=== PATIENT | female | born 1955 | race Caucasian/White ===

== ENCOUNTER 2022-04-28 20:18 | Inpatient (IN) ==
[2022-04-28] MEDS ORDERED: MORPHINE 2 MG/1 ML SYRINGE IV STA (20:42)
[2022-04-28] MEDS ORDERED: SODIUM CHLORIDE 0.9% 500 ML IV STA (20:42)
[2022-04-28] MEDS ORDERED: ASPIRIN 325 MG TABLET PO STA (20:42)
[2022-04-28] MEDS ORDERED: DILTIAZEM 50 MG/10 ML VIAL IV STA (20:42)
[2022-04-28] MEDS ORDERED: ONDANSETRON 4 MG/2 ML VIAL IV STA (20:45)
[2022-04-28 20:57] LABS: Basophils # 0.1 10*3/uL (0.0-0.2); Basophils % 1.2 % (0.0-0.8); Eosinophils # 0.2 10*3/uL (0.0-0.87); Eosinophils % 1.6 % (0.00-10.9); Hematocrit 41.3 VOL% (35.7-47.0); Hemoglobin 13.3 GM/DL (12.0-16.0); Immature Granulocytes % 0.9 %; Immature Granulocytes Absolute 0.09 #; Lymphocytes # 3.3 10*3/uL (1.4-4.0); Lymphocytes % 31.4 % (21.3-54.2); Mean Corpuscular HGB Conc 32.2 GM/DL (32-36); Mean Corpuscular Volume 87.5 FL (87-102); Mean Platelet Volume 10.1 FL (9.6-12.0); Monocytes # 0.9 10*3/uL (0.11-0.8); Monocytes % 8.5 % (1.7-12.7); Neutrophils % 56.4 % (38.7-73.9); Platelet Count 390 T/CUMM (130-400); Red Blood Count 4.72 MC/CUMM (3.8-5.5); Red Cell Distribution Width 14.6 % (9.3-17.3); White Blood Count 10.4 T/CUMM (4-12)
[2022-04-28 21:06] LABS: INR 1.1; PT Patient Result 12.4 SECS (10.1-12.1)
[2022-04-28] MEDS: DILTIAZEM INJ 100 MG in SODIUM CHLORIDE 0.9% 100 ML IV SCH (21:10)
[2022-04-28 21:21] LABS: Albumin 3.2 G/DL (3.4-5.0); Bilirubin,Total 0.7 MG/DL (0.20-1.00); Calcium 8.6 MG/DL (8.5-10.1); Osmolality,Calculated 280.5 MOS/KG (273-304); Thyroid Stimulating Hormone 12.7 uIU/ml (0.358-3.74); Total Protein 6.3 G/DL (6.4-8.2)
[2022-04-28] MEDS ORDERED: POTASSIUM CHLORIDE 20 MEQ TABLET PO STA (21:23)
[2022-04-28] MEDS ORDERED: ENOXAPARIN 100 MG/ML SYRINGE SUBCUT STA (21:58)
[2022-04-28] MEDS ORDERED: ENOXAPARIN 80 MG/0.8 ML SYRINGE SUBCUT STA (22:00)
[2022-04-28] MEDS ORDERED: ZALEPLON 5 MG CAPSULE PO PRN (22:27)
[2022-04-28] MEDS ORDERED: hydrALAZINE 20 MG/1 ML VIAL IV PRN (22:27)
[2022-04-28] MEDS ORDERED: ALBUTEROL/IPRATROPIUM 3 ML NEB RESP TX PRN (22:27)
[2022-04-28] MEDS ORDERED: NICOTINE 21 MG/24 HR PATCH TRANSDERM PRN (22:27)
[2022-04-28] MEDS ORDERED: diphenhydrAMINE CAP 25 MG CAPSULE PO PRN (22:27)
[2022-04-28] MEDS ORDERED: guaiFENesin/DM ER 600-30 MG TABLET PO PRN (22:27)
[2022-04-28 23:46] LABS: Bacteria,Urine Occasional /HPF (Few); RBC,Urine 4 /HPF (0-4); Squamous Epithelial Cell,Urine Occasional /HPF (0-10)
[2022-04-28 23:47] LABS: Bilirubin,Urine Negative (Negative); Blood, Urine Moderate mg/dL (Negative); Glucose,Urine (UA) Negative (Negative); Ketones,Urine Negative (Negative); Nitrite,Urine Negative (Negative); Protein,Urine 30 mg/dL (Negative); Urine Appearance Clear (Clear); Urine Color Yellow (Yellow); Urine Specific Gravity 1.015 (1.001-1.035); Urine Urobilinogen 0.2 eU/dL (<2.0)
[2022-04-29 00:10] LABS: Barbiturates Screen,Urine Negative (Negative); Benzodiazepines Screen,Urine Negative (Negative); Cannabinoid Screen,Urine Negative (Negative); Opiate Screen,Urine Negative (Negative); Phencyclidine Screen,Urine Negative (Negative)
[2022-04-29] MEDS: cefTRIAXone 1,000 MG in SODIUM CHLORIDE 0.9% 100 ML IV SCH (00:50)
[2022-04-29] MEDS: ONDANSETRON 4 MG/2 ML VIAL IV PRN ×2 (01:10→08:26)
[2022-04-29] MEDS: MORPHINE 2 MG/1 ML SYRINGE IV PRN ×2 (01:13→08:25)
[2022-04-29] MEDS: metroNIDAZOLE INJ 500 MG/100 ML PREMIX IV SCH ×3 (01:58→17:49)
[2022-04-29 04:22] LABS: Basophils # 0.1 10*3/uL (0.0-0.2); Basophils % 0.6 % (0.0-0.8); Hematocrit 42.5 VOL% (35.7-47.0); Hemoglobin 13.2 GM/DL (12.0-16.0); Immature Granulocytes Absolute 0.14 #; Lymphocytes # 1.2 10*3/uL (1.4-4.0); Lymphocytes % 8.6 % (21.3-54.2); Mean Corpuscular HGB Conc 31.1 GM/DL (32-36); Mean Corpuscular Volume 89.3 FL (87-102); Mean Platelet Volume 10.5 FL (9.6-12.0); Monocytes # 0.9 10*3/uL (0.11-0.8); Monocytes % 6.5 % (1.7-12.7); Neutrophils % 83.3 % (38.7-73.9); Platelet Count 376 T/CUMM (130-400); Red Blood Count 4.76 MC/CUMM (3.8-5.5); Red Cell Distribution Width 14.6 % (9.3-17.3); White Blood Count 13.6 T/CUMM (4-12)
[2022-04-29 04:47] LABS: Calcium 8.6 MG/DL (8.5-10.1); Osmolality,Calculated 278.7 MOS/KG (273-304)
[2022-04-29] MEDS: FUROSEMIDE 40 MG/4 ML VIAL IV SCH ×2 (07:55→17:10)
[2022-04-29] MEDS: DOCUSATE SODIUM 100 MG CAPSULE PO SCH ×2 (09:30→23:59)
[2022-04-29] MEDS: POTASSIUM CHLORIDE 20 MEQ TABLET PO SCH (09:30)
[2022-04-29] MEDS: PANTOPRAZOLE 40 MG TABLET PO SCH (09:30)
[2022-04-29] MEDS ORDERED: LEVALBUTEROL 1.25 MG/3 ML NEB RESP TX PRN (12:46)
[2022-04-29] MEDS: DILTIAZEM INJ 100 MG in SODIUM CHLORIDE 0.9% 100 ML IV SCH (20:30)
[2022-04-30] MEDS: cefTRIAXone 1,000 MG in SODIUM CHLORIDE 0.9% 100 ML IV SCH (00:12)
[2022-04-30] MEDS: metroNIDAZOLE INJ 500 MG/100 ML PREMIX IV SCH ×2 (00:12→09:44)
[2022-04-30] MEDS: MORPHINE 2 MG/1 ML SYRINGE IV PRN (01:41)
[2022-04-30 04:37] LABS: Basophils # 0.1 10*3/uL (0.0-0.2); Basophils % 0.2 % (0.0-0.8); Hematocrit 38.8 VOL% (35.7-47.0); Hemoglobin 12.5 GM/DL (12.0-16.0); Immature Granulocytes % 1.4 %; Immature Granulocytes Absolute 0.42 #; Lymphocytes % 3.4 % (21.3-54.2); Mean Corpuscular HGB Conc 32.2 GM/DL (32-36); Mean Platelet Volume 10.1 FL (9.6-12.0); Monocytes # 2.3 10*3/uL (0.11-0.8); Monocytes % 7.8 % (1.7-12.7); NRBC # 0.03 10*3/uL; Neutrophils % 87.2 % (38.7-73.9); Platelet Count 321 T/CUMM (130-400); Red Blood Count 4.41 MC/CUMM (3.8-5.5); Red Cell Distribution Width 14.8 % (9.3-17.3)
[2022-04-30 04:58] LABS: Lymphocytes 3 % (20-55); Platelet Estimate Adequate; Total Cells Counted 100
[2022-04-30 04:59] LABS: Hypochromia Slight; Microcytosis Slight
[2022-04-30 05:00] LABS: Albumin 2.8 G/DL (3.4-5.0); Bilirubin,Total 0.6 MG/DL (0.20-1.00); Calcium 8.4 MG/DL (8.5-10.1); Osmolality,Calculated 279.5 MOS/KG (273-304); Potassium 3.4 MMOL/L (3.5-5.1); Total Protein 6.2 G/DL (6.4-8.2)
[2022-04-30 05:01] LABS: Risk Ratio 3.11; VLDL Cholesterol 27.2 MG/DL
[2022-04-30] MEDS: DILTIAZEM INJ 100 MG in SODIUM CHLORIDE 0.9% 100 ML IV SCH ×3 (05:37→22:06)
[2022-04-30] MEDS ORDERED: MAGNESIUM SULF RIDER 4 GM/100 ML PREMIX IV PRN (08:42)
[2022-04-30] MEDS ORDERED: MAGNESIUM SULF RIDER 2 GM/50 ML PREMIX IV PRN (08:42)
[2022-04-30] MEDS: FUROSEMIDE 40 MG/4 ML VIAL IV SCH (09:44)
[2022-04-30] MEDS: NICOTINE 21 MG/24 HR PATCH TRANSDERM SCH ×2 (09:44→12:08)
[2022-04-30 11:53] LABS: Basophils # 0.1 10*3/uL (0.0-0.2); Basophils % 0.2 % (0.0-0.8); Hematocrit 41.7 VOL% (35.7-47.0); Hemoglobin 13.4 GM/DL (12.0-16.0); Immature Granulocytes % 1.5 %; Immature Granulocytes Absolute 0.52 #; Lymphocytes # 1.2 10*3/uL (1.4-4.0); Lymphocytes % 3.3 % (21.3-54.2); Mean Corpuscular HGB Conc 32.1 GM/DL (32-36); Mean Corpuscular Volume 89.1 FL (87-102); Mean Platelet Volume 9.7 FL (9.6-12.0); Monocytes # 2.6 10*3/uL (0.11-0.8); Monocytes % 7.3 % (1.7-12.7); NRBC # 0.03 10*3/uL; Neutrophils % 87.7 % (38.7-73.9); Platelet Count 381 T/CUMM (130-400); Red Blood Count 4.68 MC/CUMM (3.8-5.5); White Blood Count 35.3 T/CUMM (4-12)
[2022-04-30] MEDS: POTASSIUM CHLORIDE 20 MEQ TABLET PO SCH (12:43)
[2022-04-30 12:44] LABS: Band Neutrophils 2 % (0-10); Lymphocytes 1 % (20-55); Total Cells Counted 100
[2022-04-30] MEDS: PANTOPRAZOLE 40 MG TABLET PO SCH (12:44)
[2022-04-30] MEDS: DOCUSATE SODIUM 100 MG CAPSULE PO SCH ×2 (12:44→22:03)
[2022-04-30 12:46] LABS: Platelet Estimate Normal; Polychromasia Slight
[2022-04-30] MEDS: PIPERACILLIN/TAZOBACTAM 3,375 MG in SODIUM CHLORIDE 0.9% 100 ML IV SCH ×2 (14:50→22:05)
[2022-04-30] MEDS ORDERED: SODIUM CHLORIDE 0.9% 1,000 ML IV ONE (15:45)
[2022-04-30] MEDS ORDERED: HEPARIN DRIP 25,000 UNITS/500 ML PREMIX IV SCH (17:30)
[2022-04-30] MEDS: VANCOMYCIN INJ 1,000 MG in SODIUM CHLORIDE 0.9% 250 ML IV SCH (18:40)
[2022-04-30 20:00] LABS: INR 1.5; Partial Thromboplastin Time 29.7 SECS (23.7-32.9)
[2022-04-30] MEDS: HEPARIN DRIP 25,000 UNITS/500 ML PREMIX IV SCH (23:45)
[2022-05-01] MEDS: ACETAMINOPHEN 325 MG TABLET PO PRN (04:30)
[2022-05-01 05:07] LABS: Basophils # 0.1 10*3/uL (0.0-0.2); Basophils % 0.3 % (0.0-0.8); Hematocrit 38.5 VOL% (35.7-47.0); Hemoglobin 12.3 GM/DL (12.0-16.0); Immature Granulocytes Absolute 0.28 #; Lymphocytes # 1.5 10*3/uL (1.4-4.0); Lymphocytes % 5.4 % (21.3-54.2); Mean Corpuscular HGB Conc 31.9 GM/DL (32-36); Mean Corpuscular Volume 88.9 FL (87-102); Mean Platelet Volume 10.4 FL (9.6-12.0); Monocytes # 2.2 10*3/uL (0.11-0.8); NRBC # 0.03 10*3/uL; Neutrophils % 85.3 % (38.7-73.9); Platelet Count 342 T/CUMM (130-400); Red Blood Count 4.33 MC/CUMM (3.8-5.5); Red Cell Distribution Width 14.9 % (9.3-17.3); White Blood Count 27.9 T/CUMM (4-12)
[2022-05-01 05:31] LABS: Hypochromia Slight; Lymphocytes 7 % (20-55); Microcytosis Slight; Platelet Estimate Adequate; Total Cells Counted 100
[2022-05-01 05:53] LABS: Albumin 2.6 G/DL (3.4-5.0); Bilirubin,Total 0.8 MG/DL (0.20-1.00); Calcium 8.5 MG/DL (8.5-10.1); Osmolality,Calculated 275.8 MOS/KG (273-304); Potassium 3.3 MMOL/L (3.5-5.1); Total Protein 6.2 G/DL (6.4-8.2)
[2022-05-01] MEDS ORDERED: DILTIAZEM 60 MG TABLET PO ONE (06:30)
[2022-05-01] MEDS ORDERED: METOPROLOL TARTRATE 5 MG/5 ML VIAL IV PRN (06:32)
[2022-05-01] MEDS ORDERED: MAGNESIUM SULF RIDER 2 GM/50 ML PREMIX IV ONE (07:30)
[2022-05-01] MEDS: METOPROLOL TARTRATE 25 MG TABLET PO SCH ×2 (11:00→21:40)
[2022-05-01] MEDS: DOCUSATE SODIUM 100 MG CAPSULE PO SCH ×2 (11:00→21:40)
[2022-05-01] MEDS: POTASSIUM CHLORIDE 20 MEQ TABLET PO SCH (11:00)
[2022-05-01] MEDS: PANTOPRAZOLE 40 MG TABLET PO SCH (11:00)
[2022-05-01] MEDS: MORPHINE 2 MG/1 ML SYRINGE IV PRN (11:20)
[2022-05-01] MEDS: NICOTINE 21 MG/24 HR PATCH TRANSDERM SCH (11:33)
[2022-05-01 17:15] LABS: INR 1.3; PT Patient Result 14.4 SECS (10.1-12.1)
[2022-05-01 17:55] LABS: Partial Thromboplastin Time 120.4 SECS (23.7-32.9)
[2022-05-01] MEDS: HEPARIN DRIP 25,000 UNITS/500 ML PREMIX IV SCH (18:08)
[2022-05-01] MEDS: VANCOMYCIN INJ 1,000 MG in SODIUM CHLORIDE 0.9% 250 ML IV SCH (18:09)
[2022-05-01 22:36] LABS: INR 1.2; PT Patient Result 13.1 SECS (10.1-12.1); Partial Thromboplastin Time 80.9 SECS (23.7-32.9)
[2022-05-02 04:58] LABS: Basophils % 0.2 % (0.0-0.8); Eosinophils % 0.1 % (0.00-10.9); Hematocrit 33.5 VOL% (35.7-47.0); Hemoglobin 10.9 GM/DL (12.0-16.0); Immature Granulocytes % 1.1 %; Immature Granulocytes Absolute 0.19 #; Lymphocytes % 5.8 % (21.3-54.2); Mean Corpuscular HGB Conc 32.5 GM/DL (32-36); Mean Corpuscular Volume 88.4 FL (87-102); Mean Platelet Volume 10.6 FL (9.6-12.0); Monocytes # 1.4 10*3/uL (0.11-0.8); Monocytes % 7.6 % (1.7-12.7); Neutrophils % 85.2 % (38.7-73.9); Platelet Count 293 T/CUMM (130-400); Red Blood Count 3.79 MC/CUMM (3.8-5.5); Red Cell Distribution Width 14.7 % (9.3-17.3); White Blood Count 17.9 T/CUMM (4-12)
[2022-05-02 05:17] LABS: Albumin 2.2 G/DL (3.4-5.0); Bilirubin,Total 0.6 MG/DL (0.20-1.00); Calcium 8.1 MG/DL (8.5-10.1); Potassium 3.2 MMOL/L (3.5-5.1); Total Protein 5.5 G/DL (6.4-8.2)
[2022-05-02] MEDS ORDERED: POTASSIUM CHLORIDE 20 MEQ TABLET PO ONE (07:30)
[2022-05-02] MEDS: DOCUSATE SODIUM 100 MG CAPSULE PO SCH ×2 (10:14→20:30)
[2022-05-02] MEDS: PANTOPRAZOLE 40 MG TABLET PO SCH (10:14)
[2022-05-02] MEDS: METOPROLOL TARTRATE 25 MG TABLET PO SCH ×2 (10:14→20:30)
[2022-05-02] MEDS: POTASSIUM CHLORIDE 20 MEQ TABLET PO SCH (10:14)
[2022-05-02] MEDS: NICOTINE 21 MG/24 HR PATCH TRANSDERM SCH (10:14)
[2022-05-02] MEDS: MORPHINE 2 MG/1 ML SYRINGE IV PRN (12:21)
[2022-05-02 12:52] LABS: Amorphous Crystals,Urine Occasional /HPF (Few); RBC,Urine 4 /HPF (0-4)
[2022-05-02 12:53] LABS: Bilirubin,Urine Small mg/dL (Negative); Blood, Urine Large mg/dL (Negative); Glucose,Urine (UA) Negative (Negative); Ketones,Urine 15 mg/dL (Negative); Nitrite,Urine Negative (Negative); Protein,Urine 100 mg/dL (Negative); Urine Appearance Clear (Clear); Urine Color Yellow (Yellow); Urine Specific Gravity > 1.030 (1.001-1.035); Urine Urobilinogen 0.2 eU/dL (<2.0)
[2022-05-02] MEDS: VANCOMYCIN INJ 1,000 MG in SODIUM CHLORIDE 0.9% 250 ML IV SCH (17:21)
[2022-05-02] MEDS: HEPARIN DRIP 25,000 UNITS/500 ML PREMIX IV SCH ×2 (17:30→23:30)
[2022-05-03 04:52] LABS: Basophils % 0.2 % (0.0-0.8); Eosinophils # 0.1 10*3/uL (0.0-0.87); Eosinophils % 0.6 % (0.00-10.9); Hematocrit 35.9 VOL% (35.7-47.0); Hemoglobin 11.4 GM/DL (12.0-16.0); Immature Granulocytes % 0.8 %; Immature Granulocytes Absolute 0.11 #; Lymphocytes # 1.3 10*3/uL (1.4-4.0); Lymphocytes % 10.2 % (21.3-54.2); Mean Corpuscular HGB Conc 31.8 GM/DL (32-36); Mean Corpuscular Volume 87.6 FL (87-102); Mean Platelet Volume 10.1 FL (9.6-12.0); Monocytes # 1.3 10*3/uL (0.11-0.8); Monocytes % 9.5 % (1.7-12.7); NRBC # 0.03 10*3/uL; Neutrophils % 78.7 % (38.7-73.9); Platelet Count 298 T/CUMM (130-400); Red Cell Distribution Width 14.6 % (9.3-17.3); White Blood Count 13.1 T/CUMM (4-12)
[2022-05-03 05:11] LABS: Calcium 8.1 MG/DL (8.5-10.1); Osmolality,Calculated 268.4 MOS/KG (273-304); Potassium 3.9 MMOL/L (3.5-5.1)
[2022-05-03] MEDS ORDERED: METOPROLOL TARTRATE 25 MG TABLET PO ONE (10:22)
[2022-05-03] MEDS ORDERED: FUROSEMIDE 40 MG/4 ML VIAL IV ONE (10:23)
[2022-05-03] MEDS: POTASSIUM CHLORIDE 20 MEQ TABLET PO SCH (10:37)
[2022-05-03] MEDS: PANTOPRAZOLE 40 MG TABLET PO SCH (10:37)
[2022-05-03] MEDS: DOCUSATE SODIUM 100 MG CAPSULE PO SCH ×2 (10:38→21:00)
[2022-05-03] MEDS: NICOTINE 21 MG/24 HR PATCH TRANSDERM SCH (10:38)
[2022-05-03] MEDS: METOPROLOL TARTRATE 25 MG TABLET PO SCH (10:57)
[2022-05-03] MEDS: APIXABAN 5 MG TABLET PO SCH (12:21)
[2022-05-03] MEDS ORDERED: INDOCYANINE GREEN 25 MG VIAL IV ONE (12:30)
[2022-05-03] MEDS ORDERED: ceFAZolin 2,000 MG/50 ML DUPLEX IV ONE (12:30)
[2022-05-03] MEDS: ACETAMINOPHEN 325 MG TABLET PO PRN ×2 (13:04→21:00)
[2022-05-03] MEDS ORDERED: FAMOTIDINE 20 MG TABLET PO ONE (15:24)
[2022-05-03] MEDS: PIPERACILLIN/TAZOBACTAM 3,375 MG in SODIUM CHLORIDE 0.9% 100 ML IV SCH ×2 (16:38→21:00)
[2022-05-03] MEDS: METOPROLOL TARTRATE 50 MG TABLET PO SCH (20:59)
[2022-05-04 04:34] LABS: Basophils % 0.2 % (0.0-0.8); Eosinophils # 0.1 10*3/uL (0.0-0.87); Eosinophils % 1.1 % (0.00-10.9); Hematocrit 36.7 VOL% (35.7-47.0); Hemoglobin 11.8 GM/DL (12.0-16.0); Immature Granulocytes % 1.2 %; Immature Granulocytes Absolute 0.15 #; Lymphocytes # 1.8 10*3/uL (1.4-4.0); Mean Corpuscular HGB Conc 32.2 GM/DL (32-36); Mean Corpuscular Volume 87.2 FL (87-102); Mean Platelet Volume 10.1 FL (9.6-12.0); Monocytes # 1.4 10*3/uL (0.11-0.8); Monocytes % 10.9 % (1.7-12.7); NRBC # 0.02 10*3/uL; Neutrophils % 72.6 % (38.7-73.9); Platelet Count 335 T/CUMM (130-400); Red Blood Count 4.21 MC/CUMM (3.8-5.5); Red Cell Distribution Width 14.7 % (9.3-17.3); White Blood Count 12.5 T/CUMM (4-12)
[2022-05-04 04:54] LABS: Albumin 2.2 G/DL (3.4-5.0); Bilirubin,Total 0.7 MG/DL (0.20-1.00); Calcium 7.9 MG/DL (8.5-10.1); Osmolality,Calculated 273.1 MOS/KG (273-304); Potassium 4.1 MMOL/L (3.5-5.1); Total Protein 5.6 G/DL (6.4-8.2)
[2022-05-04] MEDS: PIPERACILLIN/TAZOBACTAM 3,375 MG in SODIUM CHLORIDE 0.9% 100 ML IV SCH ×3 (05:20→21:50)
[2022-05-04] MEDS ORDERED: FAMOTIDINE 20 MG TABLET PO ONE (06:00)
[2022-05-04] MEDS ORDERED: ceFAZolin 2,000 MG/50 ML DUPLEX IV ONE (06:00)
[2022-05-04] MEDS ORDERED: INDOCYANINE GREEN 25 MG VIAL IV ONE (06:00)
[2022-05-04] MEDS ORDERED: ONDANSETRON 4 MG/2 ML VIAL ONE (08:22)
[2022-05-04] MEDS ORDERED: ETOMIDATE 40 MG/20 ML VIAL IV ONE (08:22)
[2022-05-04] MEDS ORDERED: SUCCINYLCHOLINE 200 MG/10 ML VIAL ONE (08:22)
[2022-05-04] MEDS ORDERED: fentaNYL 100 MCG/2 ML VIAL ONE (08:22)
[2022-05-04] MEDS ORDERED: ROCURONIUM 50 MG/5 ML VIAL IV ONE (08:22)
[2022-05-04] MEDS ORDERED: MIDAZOLAM 2 MG/2 ML VIAL ONE (08:22)
[2022-05-04] MEDS ORDERED: LIDOCAINE 2% 5 ML VIAL ONE (08:22)
[2022-05-04] MEDS ORDERED: LIDOCAINE 1%/EPI INJ 20 ML VIAL ONE (08:24)
[2022-05-04] MEDS ORDERED: TISSUE ADHESIVE 1 EACH APPLICATOR TOP ONE (08:24)
[2022-05-04] MEDS ORDERED: BUPIVACAINE MPF 0.25% 10 ML VIAL ONE (08:24)
[2022-05-04] MEDS ORDERED: ACETAMINOPHEN INJ 1,000 MG/100 ML VIAL IV ONE (08:28)
[2022-05-04] MEDS ORDERED: LACTATED RINGERS 1,000 ML IV SCH (09:00)
[2022-05-04] MEDS ORDERED: FUROSEMIDE 40 MG TABLET PO SCH (09:00)
[2022-05-04] MEDS ORDERED: SUGAMMADEX 200 MG/2 ML VIAL IV ONE (09:24)
[2022-05-04] MEDS ORDERED: PHENYLEPHRINE 1 MG/10 ML SYRINGE IV ONE (09:24)
[2022-05-04] MEDS: PANTOPRAZOLE 40 MG TABLET PO SCH (10:29)
[2022-05-04] MEDS: DOCUSATE SODIUM 100 MG CAPSULE PO SCH ×2 (10:29→21:49)
[2022-05-04] MEDS: METOPROLOL TARTRATE 50 MG TABLET PO SCH ×2 (10:29→21:49)
[2022-05-04] MEDS: POTASSIUM CHLORIDE 20 MEQ TABLET PO SCH (10:29)
[2022-05-04] MEDS: NICOTINE 21 MG/24 HR PATCH TRANSDERM SCH (13:24)
[2022-05-04] MEDS: ACETAMINOPHEN 325 MG TABLET PO PRN (21:49)
[2022-05-05 04:24] LABS: Basophils % 0.3 % (0.0-0.8); Eosinophils # 0.1 10*3/uL (0.0-0.87); Eosinophils % 0.5 % (0.00-10.9); Hemoglobin 11.9 GM/DL (12.0-16.0); Immature Granulocytes % 1.7 %; Immature Granulocytes Absolute 0.21 #; Lymphocytes # 1.5 10*3/uL (1.4-4.0); Lymphocytes % 12.2 % (21.3-54.2); Mean Corpuscular HGB Conc 31.3 GM/DL (32-36); Mean Corpuscular Volume 88.2 FL (87-102); Mean Platelet Volume 10.3 FL (9.6-12.0); Monocytes # 1.2 10*3/uL (0.11-0.8); Monocytes % 9.7 % (1.7-12.7); NRBC # 0.04 10*3/uL; Neutrophils % 75.6 % (38.7-73.9); Platelet Count 264 T/CUMM (130-400); Red Blood Count 4.31 MC/CUMM (3.8-5.5); Red Cell Distribution Width 14.6 % (9.3-17.3); White Blood Count 12.3 T/CUMM (4-12)
[2022-05-05 04:45] LABS: Albumin 2.3 G/DL (3.4-5.0); Bilirubin,Total 0.7 MG/DL (0.20-1.00); Calcium 8.2 MG/DL (8.5-10.1); Potassium 4.2 MMOL/L (3.5-5.1); Total Protein 5.3 G/DL (6.4-8.2)
[2022-05-05] MEDS: PIPERACILLIN/TAZOBACTAM 3,375 MG in SODIUM CHLORIDE 0.9% 100 ML IV SCH (05:26)
[2022-05-05] MEDS: POTASSIUM CHLORIDE 20 MEQ TABLET PO SCH (09:01)
[2022-05-05] MEDS: METOPROLOL TARTRATE 50 MG TABLET PO SCH (09:01)
[2022-05-05] MEDS: PANTOPRAZOLE 40 MG TABLET PO SCH (09:01)
[2022-05-05] MEDS: DOCUSATE SODIUM 100 MG CAPSULE PO SCH ×3 (09:01→21:22)
[2022-05-05] MEDS: NICOTINE 21 MG/24 HR PATCH TRANSDERM SCH (09:02)
[2022-05-05] MEDS: MORPHINE 2 MG/1 ML SYRINGE IV PRN (13:01)
[2022-05-05] MEDS ORDERED: SODIUM CHLORIDE 0.9% 500 ML IV ONE ×2 (16:10→18:22)
[2022-05-05 16:29] LABS: Basophils % 0.3 % (0.0-0.8); Eosinophils % 0.1 % (0.00-10.9); Hematocrit 41.3 VOL% (35.7-47.0); Hemoglobin 12.8 GM/DL (12.0-16.0); Immature Granulocytes % 3.5 %; Immature Granulocytes Absolute 0.52 #; Lymphocytes # 1.4 10*3/uL (1.4-4.0); Lymphocytes % 9.3 % (21.3-54.2); Mean Corpuscular Volume 89.2 FL (87-102); Mean Platelet Volume 10.1 FL (9.6-12.0); Monocytes # 1.3 10*3/uL (0.11-0.8); Monocytes % 8.5 % (1.7-12.7); NRBC # 0.18 10*3/uL; Neutrophils % 78.3 % (38.7-73.9); Platelet Count 289 T/CUMM (130-400); Red Blood Count 4.63 MC/CUMM (3.8-5.5); Red Cell Distribution Width 15.1 % (9.3-17.3)
[2022-05-05 17:54] LABS: Lymphocytes 11 % (20-55); Nucleated Red Blood Cells 1 /100 WBC (0-5); Total Cells Counted 100
[2022-05-05 17:55] LABS: Ovalocytes Slight; Platelet Estimate Normal; Polychromasia Slight
[2022-05-06 04:30] LABS: Basophils # 0.1 10*3/uL (0.0-0.2); Basophils % 0.5 % (0.0-0.8); Eosinophils # 0.1 10*3/uL (0.0-0.87); Eosinophils % 0.4 % (0.00-10.9); Hematocrit 39.8 VOL% (35.7-47.0); Hemoglobin 12.3 GM/DL (12.0-16.0); Immature Granulocytes % 4.1 %; Lymphocytes # 2.1 10*3/uL (1.4-4.0); Lymphocytes % 12.2 % (21.3-54.2); Mean Corpuscular HGB Conc 30.9 GM/DL (32-36); Mean Corpuscular Volume 89.2 FL (87-102); Mean Platelet Volume 10.3 FL (9.6-12.0); Monocytes # 1.6 10*3/uL (0.11-0.8); Monocytes % 9.4 % (1.7-12.7); NRBC # 0.26 10*3/uL; Neutrophils % 73.4 % (38.7-73.9); Platelet Count 257 T/CUMM (130-400); Red Blood Count 4.46 MC/CUMM (3.8-5.5); Red Cell Distribution Width 15.1 % (9.3-17.3); White Blood Count 16.9 T/CUMM (4-12)
[2022-05-06 04:48] LABS: Albumin 2.4 G/DL (3.4-5.0); Bilirubin,Total 0.7 MG/DL (0.20-1.00); Calcium 8.2 MG/DL (8.5-10.1); Osmolality,Calculated 273.2 MOS/KG (273-304); Potassium 4.9 MMOL/L (3.5-5.1); Total Protein 5.5 G/DL (6.4-8.2)
[2022-05-06 04:58] LABS: Eosinophils 2 % (0-10); Lymphocytes 10 % (20-55); Nucleated Red Blood Cells 1 /100 WBC (0-5); Platelet Estimate Adequate; Total Cells Counted 100
[2022-05-06] MEDS ORDERED: METOPROLOL TARTRATE 5 MG/5 ML VIAL IV ONE (06:17)
[2022-05-06] MEDS: POTASSIUM CHLORIDE 20 MEQ TABLET PO SCH (09:50)
[2022-05-06] MEDS: METOPROLOL TARTRATE 50 MG TABLET PO SCH ×2 (09:50→21:52)
[2022-05-06] MEDS: APIXABAN 5 MG TABLET PO SCH ×2 (09:50→21:52)
[2022-05-06] MEDS: PANTOPRAZOLE 40 MG TABLET PO SCH (09:50)
[2022-05-06] MEDS: NICOTINE 21 MG/24 HR PATCH TRANSDERM SCH (09:50)
[2022-05-06] MEDS: DOCUSATE SODIUM 100 MG CAPSULE PO SCH ×2 (12:10→21:52)
[2022-05-06] MEDS: MORPHINE 2 MG/1 ML SYRINGE IV PRN ×2 (13:53→14:53)
[2022-05-07 06:18] LABS: Basophils # 0.1 10*3/uL (0.0-0.2); Basophils % 0.8 % (0.0-0.8); Eosinophils % 0.1 % (0.00-10.9); Hematocrit 44.6 VOL% (35.7-47.0); Immature Granulocytes % 6.8 %; Immature Granulocytes Absolute 1.08 #; Lymphocytes # 1.9 10*3/uL (1.4-4.0); Lymphocytes % 11.9 % (21.3-54.2); Mean Corpuscular HGB Conc 31.4 GM/DL (32-36); Mean Corpuscular Volume 90.7 FL (87-102); Mean Platelet Volume 11.5 FL (9.6-12.0); Monocytes # 1.4 10*3/uL (0.11-0.8); Neutrophils % 71.4 % (38.7-73.9); Platelet Count 251 T/CUMM (130-400); Red Blood Count 4.92 MC/CUMM (3.8-5.5); Red Cell Distribution Width 16.2 % (9.3-17.3); White Blood Count 15.9 T/CUMM (4-12)
[2022-05-07 06:27] LABS: Albumin 2.5 G/DL (3.4-5.0); Calcium 8.4 MG/DL (8.5-10.1); Osmolality,Calculated 277.2 MOS/KG (273-304); Potassium 5.8 MMOL/L (3.5-5.1); Total Protein 5.8 G/DL (6.4-8.2)
[2022-05-07] MEDS ORDERED: SODIUM POLYSTYRENE SULFATE 15 GM/60 ML BOTTLE PO STA (07:32)
[2022-05-07 07:47] LABS: Lymphocytes 12 % (20-55); Nucleated Red Blood Cells 5 /100 WBC (0-5); Platelet Estimate Adequate; Total Cells Counted 100
[2022-05-07] MEDS: DOCUSATE SODIUM 100 MG CAPSULE PO SCH ×2 (09:48→22:02)
[2022-05-07] MEDS: NICOTINE 21 MG/24 HR PATCH TRANSDERM SCH (09:48)
[2022-05-07] MEDS: PANTOPRAZOLE 40 MG TABLET PO SCH (09:48)
[2022-05-07] MEDS: APIXABAN 5 MG TABLET PO SCH ×2 (09:48→22:02)
[2022-05-07] MEDS: METOPROLOL TARTRATE 50 MG TABLET PO SCH ×2 (09:48→22:02)
[2022-05-08 07:52] LABS: Basophils # 0.1 10*3/uL (0.0-0.2); Basophils % 0.5 % (0.0-0.8); Eosinophils # 0.1 10*3/uL (0.0-0.87); Eosinophils % 0.4 % (0.00-10.9); Hematocrit 42.2 VOL% (35.7-47.0); Hemoglobin 12.7 GM/DL (12.0-16.0); Immature Granulocytes % 4.6 %; Lymphocytes # 2.2 10*3/uL (1.4-4.0); Lymphocytes % 14.7 % (21.3-54.2); Mean Corpuscular HGB Conc 30.1 GM/DL (32-36); Mean Corpuscular Volume 91.7 FL (87-102); Mean Platelet Volume 9.8 FL (9.6-12.0); Monocytes # 1.3 10*3/uL (0.11-0.8); Monocytes % 8.3 % (1.7-12.7); NRBC # 0.46 10*3/uL; Neutrophils % 71.5 % (38.7-73.9); Platelet Count 296 T/CUMM (130-400); Red Cell Distribution Width 16.8 % (9.3-17.3); White Blood Count 15.2 T/CUMM (4-12)
[2022-05-08 08:08] LABS: Calcium 7.8 MG/DL (8.5-10.1); Osmolality,Calculated 285.7 MOS/KG (273-304); Potassium 4.9 MMOL/L (3.5-5.1)
[2022-05-08] MEDS: NICOTINE 21 MG/24 HR PATCH TRANSDERM SCH (09:18)
[2022-05-08] MEDS: PANTOPRAZOLE 40 MG TABLET PO SCH (09:19)
[2022-05-08] MEDS: DOCUSATE SODIUM 100 MG CAPSULE PO SCH ×2 (09:19→20:41)
[2022-05-08] MEDS: METOPROLOL TARTRATE 50 MG TABLET PO SCH ×2 (09:19→20:41)
[2022-05-08] MEDS: APIXABAN 5 MG TABLET PO SCH ×2 (09:19→20:41)
[2022-05-09 05:52] LABS: Basophils # 0.1 10*3/uL (0.0-0.2); Basophils % 0.5 % (0.0-0.8); Eosinophils # 0.1 10*3/uL (0.0-0.87); Eosinophils % 0.5 % (0.00-10.9); Hematocrit 43.8 VOL% (35.7-47.0); Hemoglobin 13.3 GM/DL (12.0-16.0); Immature Granulocytes % 4.2 %; Immature Granulocytes Absolute 0.66 #; Lymphocytes # 1.7 10*3/uL (1.4-4.0); Lymphocytes % 10.4 % (21.3-54.2); Mean Corpuscular HGB Conc 30.4 GM/DL (32-36); Mean Corpuscular Volume 92.6 FL (87-102); Mean Platelet Volume 9.9 FL (9.6-12.0); Monocytes # 1.3 10*3/uL (0.11-0.8); Monocytes % 7.9 % (1.7-12.7); NRBC # 0.41 10*3/uL; Neutrophils % 76.5 % (38.7-73.9); Platelet Count 335 T/CUMM (130-400); Red Blood Count 4.73 MC/CUMM (3.8-5.5); Red Cell Distribution Width 17.3 % (9.3-17.3); White Blood Count 15.8 T/CUMM (4-12)
[2022-05-09 06:08] LABS: Osmolality,Calculated 284.7 MOS/KG (273-304); Potassium 4.5 MMOL/L (3.5-5.1)
[2022-05-09 06:17] LABS: Eosinophils 1 % (0-10); Lymphocytes 8 % (20-55); Nucleated Red Blood Cells 3 /100 WBC (0-5); Platelet Estimate Adequate; Total Cells Counted 100
[2022-05-09] MEDS: METOPROLOL TARTRATE 50 MG TABLET PO SCH ×2 (09:50→20:39)
[2022-05-09] MEDS: DOCUSATE SODIUM 100 MG CAPSULE PO SCH ×2 (09:50→20:39)
[2022-05-09] MEDS: APIXABAN 5 MG TABLET PO SCH ×2 (09:50→20:39)
[2022-05-09] MEDS: PANTOPRAZOLE 40 MG TABLET PO SCH (09:50)
[2022-05-09] MEDS: NICOTINE 21 MG/24 HR PATCH TRANSDERM SCH (09:50)
[2022-05-09] MEDS ORDERED: ESCITALOPRAM 10 MG TABLET PO SCH (21:00)
[2022-05-10 05:52] LABS: Calcium 8.4 MG/DL (8.5-10.1); Osmolality,Calculated 284.8 MOS/KG (273-304)
[2022-05-10 06:25] LABS: Basophils # 0.1 10*3/uL (0.0-0.2); Basophils % 0.6 % (0.0-0.8); Eosinophils % 0.1 % (0.00-10.9); Hematocrit 44.6 VOL% (35.7-47.0); Immature Granulocytes % 4.2 %; Immature Granulocytes Absolute 0.59 #; Lymphocytes # 1.3 10*3/uL (1.4-4.0); Lymphocytes % 8.8 % (21.3-54.2); Mean Corpuscular HGB Conc 30.5 GM/DL (32-36); Mean Corpuscular Volume 92.7 FL (87-102); Mean Platelet Volume 10.1 FL (9.6-12.0); NRBC # 0.26 10*3/uL; Neutrophils % 79.3 % (38.7-73.9); Platelet Count 316 T/CUMM (130-400); Red Blood Count 4.81 MC/CUMM (3.8-5.5); Red Cell Distribution Width 17.7 % (9.3-17.3); White Blood Count 14.2 T/CUMM (4-12)
[2022-05-10 06:28] LABS: Hemoglobin 13.6 GM/DL (12.0-16.0)
[2022-05-10 06:33] LABS: Lymphocytes 5 % (20-55); Platelet Estimate Adequate; Total Cells Counted 100
[2022-05-10] MEDS: APIXABAN 5 MG TABLET PO SCH (09:06)
[2022-05-10] MEDS: PANTOPRAZOLE 40 MG TABLET PO SCH (09:06)
[2022-05-10] MEDS: DOCUSATE SODIUM 100 MG CAPSULE PO SCH (09:07)
[2022-05-10] MEDS: METOPROLOL TARTRATE 50 MG TABLET PO SCH (09:07)
[2022-05-10] MEDS: NICOTINE 21 MG/24 HR PATCH TRANSDERM SCH (09:08)
[2022-05-10] MEDS ORDERED: TUBERCULIN SKIN TEST 0.1 ML SYRINGE INTRADERM ONE (10:47)
[2022-05-10 12:15] VITALS: BP 98/76
[2022-05-10] MEDS ORDERED: DESITIN 4OZ/NYSTATIN 15 GRAM MIXTURE PASTE TOP SCH (21:00)
== END 2022-05-10 16:16 | DRG 417 ==
LOC: N.ED 20:18 → SUATTDRO 22:27 → N.EDINP 22:27 → N.TELEN 04-29 22:07
PROVIDERS: ADMIT Internal Medicine; ATTEND Internal Medicine

== ENCOUNTER 2022-05-14 19:48 | Inpatient (IN) ==
[2022-05-14] MEDS ORDERED: DILTIAZEM 50 MG/10 ML VIAL IV ONE (20:02)
[2022-05-14] MEDS ORDERED: DILTIAZEM 100 MG VIAL.ADD IV ONE (20:02)
[2022-05-14] MEDS: DILTIAZEM INJ 100 MG in SODIUM CHLORIDE 0.9% 100 ML IV SCH (20:07)
[2022-05-14] MEDS ORDERED: ONDANSETRON 4 MG/2 ML VIAL IV STA (20:10)
[2022-05-14] MEDS ORDERED: ASPIRIN 325 MG TABLET PO STA (20:10)
[2022-05-14] MEDS ORDERED: ALBUTEROL/IPRATROPIUM 3 ML NEB RESP TX STA (20:10)
[2022-05-14] MEDS ORDERED: FUROSEMIDE 40 MG/4 ML VIAL IV STA (20:10)
[2022-05-14] MEDS ORDERED: methylPREDNISolone SOD SUC 125 MG/2 ML VIAL IV STA (20:10)
[2022-05-14] MEDS ORDERED: ALBUTEROL 2.5 MG/3 ML NEB RESP TX ONE (20:22)
[2022-05-14] MEDS ORDERED: ALBUTEROL NEB SOLN 5 MG/ML 20 ML/BOTTLE CONT NEB SCH (20:30)
[2022-05-14 20:37] LABS: INR 1.6; PT Patient Result 16.7 SECS (10.1-12.1)
[2022-05-14 20:41] LABS: Arterial Base Excess iSTAT -15 MMOL/L (-2.5-2.5); Arterial Bicarbonate iSTAT 11.4 MMOL/L (20-26); Arterial O2 Saturation iSTAT 96 % (95-100); Arterial PCO2 iSTAT 29 MM HG (35-48); Arterial PO2 iSTAT 94 MM HG (80-95); Arterial Total CO2 iSTAT 12 MMO/L (23-27); Arterial pH iSTAT 7.208 (7.35-7.45)
[2022-05-14] MEDS ORDERED: DILTIAZEM 50 MG/10 ML VIAL IV STA (20:41)
[2022-05-14 20:45] LABS: Basophils % 0.3 % (0.0-0.8); Eosinophils % 0.1 % (0.00-10.9); Hemoglobin 15.3 GM/DL (12.0-16.0); Immature Granulocytes % 2.8 %; Immature Granulocytes Absolute 0.44 #; Lymphocytes # 1.2 10*3/uL (1.4-4.0); Lymphocytes % 7.7 % (21.3-54.2); Mean Corpuscular HGB Conc 29.4 GM/DL (32-36); Mean Corpuscular Volume 96.7 FL (87-102); Mean Platelet Volume 10.6 FL (9.6-12.0); Monocytes # 0.8 10*3/uL (0.11-0.8); Monocytes % 5.3 % (1.7-12.7); NRBC # 0.15 10*3/uL; Neutrophils % 83.8 % (38.7-73.9); Platelet Count 329 T/CUMM (130-400); Red Blood Count 5.38 MC/CUMM (3.8-5.5); White Blood Count 15.7 T/CUMM (4-12)
[2022-05-14 20:46] LABS: Albumin 2.7 G/DL (3.4-5.0); Bilirubin,Total 1.2 MG/DL (0.20-1.00); Calcium 8.9 MG/DL (8.5-10.1); Osmolality,Calculated 288.8 MOS/KG (273-304); Potassium 5.2 MMOL/L (3.5-5.1); Total Protein 6.8 G/DL (6.4-8.2)
[2022-05-14] MEDS ORDERED: ONDANSETRON 4 MG/2 ML VIAL IV PRN (21:08)
[2022-05-14] MEDS ORDERED: GLUCAGON 1 MG VIAL IM PRN (21:08)
[2022-05-14] MEDS ORDERED: MAGNESIUM SULF RIDER 4 GM/100 ML PREMIX IV PRN (21:13)
[2022-05-14] MEDS ORDERED: MAGNESIUM SULF RIDER 2 GM/50 ML PREMIX IV PRN (21:13)
[2022-05-14] MEDS ORDERED: DEXTROSE 10% 250 ML BAG IV PRN (21:22)
[2022-05-14] MEDS: LEVOFLOXACIN INJ 750 MG/150 ML PREMIX IV SCH (22:00)
[2022-05-14] MEDS ORDERED: LEVALBUTEROL 1.25 MG/3 ML NEB RESP TX ONE (23:32)
[2022-05-15] MEDS: LEVALBUTEROL 1.25 MG/3 ML NEB RESP TX SCH ×4 (00:41→20:06)
[2022-05-15] MEDS: APIXABAN 5 MG TABLET PO SCH ×5 (01:30→21:00)
[2022-05-15] MEDS: METOPROLOL SUCCINATE XL 50 MG TABLET PO SCH ×3 (01:30→18:56)
[2022-05-15] MEDS: ESCITALOPRAM 10 MG TABLET PO SCH ×3 (01:30→21:00)
[2022-05-15] MEDS: DILTIAZEM INJ 100 MG in SODIUM CHLORIDE 0.9% 100 ML IV SCH ×2 (04:30→22:27)
[2022-05-15 05:00] LABS: Basophils % 0.2 % (0.0-0.8); Hematocrit 42.1 VOL% (35.7-47.0); Hemoglobin 12.9 GM/DL (12.0-16.0); Immature Granulocytes % 1.8 %; Immature Granulocytes Absolute 0.22 #; Lymphocytes # 0.5 10*3/uL (1.4-4.0); Lymphocytes % 4.3 % (21.3-54.2); Mean Corpuscular HGB Conc 30.6 GM/DL (32-36); Mean Corpuscular Volume 92.3 FL (87-102); Mean Platelet Volume 10.3 FL (9.6-12.0); Monocytes # 0.4 10*3/uL (0.11-0.8); Monocytes % 3.5 % (1.7-12.7); NRBC # 0.09 10*3/uL; Neutrophils % 90.2 % (38.7-73.9); Platelet Count 229 T/CUMM (130-400); Red Blood Count 4.56 MC/CUMM (3.8-5.5); Red Cell Distribution Width 18.2 % (9.3-17.3); White Blood Count 12.1 T/CUMM (4-12)
[2022-05-15] MEDS: methylPREDNISolone SOD SUC 40 MG/1 ML VIAL IV SCH ×3 (05:18→23:05)
[2022-05-15 05:28] LABS: Albumin 2.2 G/DL (3.4-5.0); Calcium 8.3 MG/DL (8.5-10.1); Osmolality,Calculated 290.4 MOS/KG (273-304); Potassium 3.8 MMOL/L (3.5-5.1); Total Protein 5.4 G/DL (6.4-8.2)
[2022-05-15 05:35] LABS: Band Neutrophils 1 % (0-10); Lymphocytes 2 % (20-55); Platelet Estimate Adequate; Total Cells Counted 100
[2022-05-15 05:36] LABS: Hypochromia Slight
[2022-05-15] MEDS: INSULIN REGULAR 100 UNIT/ML SUBCUT SCH ×4 (07:36→21:38)
[2022-05-15] MEDS: FUROSEMIDE 40 MG/4 ML VIAL IV SCH ×2 (07:45→17:35)
[2022-05-15] MEDS: PANTOPRAZOLE 40 MG TABLET PO SCH (09:15)
[2022-05-15] MEDS: METOPROLOL TARTRATE 50 MG TABLET PO SCH ×2 (12:16→21:00)
[2022-05-16] MEDS: LEVALBUTEROL 1.25 MG/3 ML NEB RESP TX SCH ×4 (00:35→19:46)
[2022-05-16] MEDS: methylPREDNISolone SOD SUC 40 MG/1 ML VIAL IV SCH ×3 (04:58→21:20)
[2022-05-16 05:00] LABS: Basophils % 0.2 % (0.0-0.8); Hematocrit 38.5 VOL% (35.7-47.0); Hemoglobin 11.9 GM/DL (12.0-16.0); Immature Granulocytes Absolute 0.16 #; Lymphocytes # 0.6 10*3/uL (1.4-4.0); Lymphocytes % 3.6 % (21.3-54.2); Mean Corpuscular HGB Conc 30.9 GM/DL (32-36); Mean Corpuscular Volume 91.4 FL (87-102); Mean Platelet Volume 10.3 FL (9.6-12.0); Monocytes # 0.7 10*3/uL (0.11-0.8); Monocytes % 4.4 % (1.7-12.7); NRBC # 0.03 10*3/uL; Neutrophils % 90.8 % (38.7-73.9); Platelet Count 193 T/CUMM (130-400); Red Blood Count 4.21 MC/CUMM (3.8-5.5); Red Cell Distribution Width 18.2 % (9.3-17.3); White Blood Count 15.8 T/CUMM (4-12)
[2022-05-16 05:30] LABS: Calcium 7.9 MG/DL (8.5-10.1); Lymphocytes 3 % (20-55); Osmolality,Calculated 294.1 MOS/KG (273-304); Platelet Estimate Adequate; Potassium 2.8 MMOL/L (3.5-5.1); Total Cells Counted 100
[2022-05-16] MEDS: FUROSEMIDE 40 MG/4 ML VIAL IV SCH ×2 (08:22→17:33)
[2022-05-16] MEDS: METOPROLOL TARTRATE 50 MG TABLET PO SCH ×2 (09:01→21:20)
[2022-05-16] MEDS: PANTOPRAZOLE 40 MG TABLET PO SCH (09:01)
[2022-05-16] MEDS: APIXABAN 5 MG TABLET PO SCH ×2 (09:01→21:19)
[2022-05-16] MEDS: INSULIN REGULAR 100 UNIT/ML SUBCUT SCH ×4 (09:02→23:19)
[2022-05-16] MEDS: BUDESONIDE/FORMOTEROL 160-4.5 INHALER 6 GM INH SCH (09:02)
[2022-05-16] MEDS: ACETAMINOPHEN 325 MG TABLET PO PRN (16:30)
[2022-05-16] MEDS ORDERED: POTASSIUM BICARB EFFERVESCENT 20 MEQ TAB.EFF PO ONE (16:39)
[2022-05-16] MEDS: POTASSIUM BICARB EFFERVESCENT 20 MEQ TAB.EFF PO SCH (17:12)
[2022-05-16] MEDS: ESCITALOPRAM 10 MG TABLET PO SCH (21:20)
[2022-05-16] MEDS: LEVOFLOXACIN INJ 750 MG/150 ML PREMIX IV SCH (21:30)
[2022-05-16] MEDS: DILTIAZEM INJ 100 MG in SODIUM CHLORIDE 0.9% 100 ML IV SCH (23:19)
[2022-05-17] MEDS: LEVALBUTEROL 1.25 MG/3 ML NEB RESP TX SCH ×4 (02:18→19:45)
[2022-05-17] MEDS: POTASSIUM BICARB EFFERVESCENT 20 MEQ TAB.EFF PO SCH ×2 (03:14→09:20)
[2022-05-17] MEDS: methylPREDNISolone SOD SUC 40 MG/1 ML VIAL IV SCH ×3 (04:51→21:35)
[2022-05-17 05:47] LABS: Basophils % 0.1 % (0.0-0.8); Hematocrit 37.5 VOL% (35.7-47.0); Hemoglobin 11.6 GM/DL (12.0-16.0); Immature Granulocytes % 1.5 %; Immature Granulocytes Absolute 0.24 #; Lymphocytes # 0.6 10*3/uL (1.4-4.0); Lymphocytes % 3.6 % (21.3-54.2); Mean Corpuscular HGB Conc 30.9 GM/DL (32-36); Mean Corpuscular Volume 90.1 FL (87-102); Mean Platelet Volume 10.4 FL (9.6-12.0); Monocytes # 0.7 10*3/uL (0.11-0.8); Monocytes % 4.5 % (1.7-12.7); Neutrophils % 90.3 % (38.7-73.9); Platelet Count 178 T/CUMM (130-400); Red Blood Count 4.16 MC/CUMM (3.8-5.5); Red Cell Distribution Width 17.9 % (9.3-17.3); White Blood Count 15.9 T/CUMM (4-12)
[2022-05-17 06:05] LABS: Albumin 1.9 G/DL (3.4-5.0); Bilirubin,Total 1.1 MG/DL (0.20-1.00); Calcium 7.7 MG/DL (8.5-10.1); Osmolality,Calculated 286.4 MOS/KG (273-304); Total Protein 5.1 G/DL (6.4-8.2)
[2022-05-17 06:10] LABS: Potassium 2.5 MMOL/L (3.5-5.1)
[2022-05-17 06:19] LABS: Band Neutrophils 3 % (0-10); Lymphocytes 1 % (20-55); Total Cells Counted 100
[2022-05-17 06:20] LABS: Microcytosis Slight; Ovalocytes Slight
[2022-05-17 06:21] LABS: Polychromasia Slight
[2022-05-17] MEDS: POTASSIUM CHLORIDE RIDER 10 MEQ/100 ML PREMIX IV PRN ×3 (06:53→10:37)
[2022-05-17] MEDS: FUROSEMIDE 40 MG/4 ML VIAL IV SCH (08:17)
[2022-05-17] MEDS: METOPROLOL TARTRATE 50 MG TABLET PO SCH ×2 (09:18→22:04)
[2022-05-17] MEDS: PANTOPRAZOLE 40 MG TABLET PO SCH (09:18)
[2022-05-17] MEDS: APIXABAN 5 MG TABLET PO SCH ×2 (09:18→22:04)
[2022-05-17] MEDS ORDERED: MAGNESIUM SULF RIDER 4 GM in PREMIX 1 EACH IV ONE ×2 (09:23→13:00)
[2022-05-17] MEDS: BUDESONIDE/FORMOTEROL 160-4.5 INHALER 6 GM INH SCH (09:23)
[2022-05-17] MEDS: INSULIN REGULAR 100 UNIT/ML SUBCUT SCH ×4 (10:34→22:05)
[2022-05-17] MEDS: POTASSIUM CHLORIDE 20 MEQ TABLET PO SCH ×2 (10:54→17:06)
[2022-05-17] MEDS: ACETAMINOPHEN 325 MG TABLET PO PRN (12:29)
[2022-05-17 20:04] LABS: Potassium 3.1 MMOL/L (3.5-5.1)
[2022-05-17] MEDS: DILTIAZEM INJ 100 MG in SODIUM CHLORIDE 0.9% 100 ML IV SCH (21:31)
[2022-05-17] MEDS: ESCITALOPRAM 10 MG TABLET PO SCH (22:04)
[2022-05-18] MEDS: LEVALBUTEROL 1.25 MG/3 ML NEB RESP TX SCH ×4 (01:20→19:44)
[2022-05-18] MEDS: POTASSIUM CHLORIDE 20 MEQ TABLET PO SCH (01:48)
[2022-05-18] MEDS: methylPREDNISolone SOD SUC 40 MG/1 ML VIAL IV SCH ×3 (04:47→20:16)
[2022-05-18 05:43] LABS: Basophils % 0.1 % (0.0-0.8); Hematocrit 39.5 VOL% (35.7-47.0); Hemoglobin 12.1 GM/DL (12.0-16.0); Immature Granulocytes % 1.1 %; Lymphocytes # 0.7 10*3/uL (1.4-4.0); Mean Corpuscular HGB Conc 30.6 GM/DL (32-36); Mean Corpuscular Volume 90.6 FL (87-102); Mean Platelet Volume 11.2 FL (9.6-12.0); Monocytes # 0.8 10*3/uL (0.11-0.8); Monocytes % 4.1 % (1.7-12.7); Neutrophils % 90.7 % (38.7-73.9); Platelet Count 181 T/CUMM (130-400); Red Blood Count 4.36 MC/CUMM (3.8-5.5); White Blood Count 18.3 T/CUMM (4-12)
[2022-05-18 06:03] LABS: Albumin 2.1 G/DL (3.4-5.0); Bilirubin,Total 0.9 MG/DL (0.20-1.00); Calcium 8.1 MG/DL (8.5-10.1); Osmolality,Calculated 291.1 MOS/KG (273-304); Potassium 3.5 MMOL/L (3.5-5.1); Total Protein 5.5 G/DL (6.4-8.2)
[2022-05-18 06:22] LABS: Band Neutrophils 2 % (0-10); Hypochromia Slight; Lymphocytes 3 % (20-55); Microcytosis Slight; Polychromasia Slight; Total Cells Counted 100
[2022-05-18 06:23] LABS: Ovalocytes Slight
[2022-05-18] MEDS: APIXABAN 5 MG TABLET PO SCH ×2 (09:09→20:17)
[2022-05-18] MEDS: METOPROLOL TARTRATE 25 MG TABLET PO SCH (09:09)
[2022-05-18] MEDS: PANTOPRAZOLE 40 MG TABLET PO SCH (09:10)
[2022-05-18] MEDS: BUDESONIDE/FORMOTEROL 160-4.5 INHALER 6 GM INH SCH (09:11)
[2022-05-18] MEDS: FUROSEMIDE 40 MG TABLET PO SCH (09:14)
[2022-05-18] MEDS: INSULIN REGULAR 100 UNIT/ML SUBCUT SCH ×4 (10:20→21:32)
[2022-05-18] MEDS: ESCITALOPRAM 10 MG TABLET PO SCH (20:17)
[2022-05-18] MEDS: LEVOFLOXACIN INJ 750 MG/150 ML PREMIX IV SCH (20:30)
[2022-05-18] MEDS: DILTIAZEM INJ 100 MG in SODIUM CHLORIDE 0.9% 100 ML IV SCH ×2 (20:37→21:31)
[2022-05-18] MEDS ORDERED: SODIUM CHLORIDE 0.9% 500 ML IV ONE (21:56)
[2022-05-19] MEDS: LEVALBUTEROL 1.25 MG/3 ML NEB RESP TX SCH ×4 (00:34→19:30)
[2022-05-19] MEDS: DILTIAZEM INJ 100 MG in SODIUM CHLORIDE 0.9% 100 ML IV SCH ×2 (02:39→14:34)
[2022-05-19] MEDS ORDERED: MORPHINE 2 MG/1 ML SYRINGE IV PRN (02:44)
[2022-05-19] MEDS: methylPREDNISolone SOD SUC 40 MG/1 ML VIAL IV SCH ×3 (05:09→20:31)
[2022-05-19 05:39] LABS: Basophils % 0.2 % (0.0-0.8); Hematocrit 37.4 VOL% (35.7-47.0); Hemoglobin 11.3 GM/DL (12.0-16.0); Immature Granulocytes % 1.1 %; Lymphocytes # 0.6 10*3/uL (1.4-4.0); Lymphocytes % 3.4 % (21.3-54.2); Mean Corpuscular HGB Conc 30.2 GM/DL (32-36); Mean Corpuscular Volume 92.1 FL (87-102); Mean Platelet Volume 11.2 FL (9.6-12.0); Monocytes # 0.8 10*3/uL (0.11-0.8); Monocytes % 4.3 % (1.7-12.7); NRBC # 0.02 10*3/uL; Platelet Count 177 T/CUMM (130-400); Red Blood Count 4.06 MC/CUMM (3.8-5.5); Red Cell Distribution Width 18.2 % (9.3-17.3); White Blood Count 18.2 T/CUMM (4-12)
[2022-05-19 06:01] LABS: Calcium 8.2 MG/DL (8.5-10.1); Osmolality,Calculated 291.4 MOS/KG (273-304); Potassium 3.4 MMOL/L (3.5-5.1)
[2022-05-19] MEDS: LORazepam 2 MG/1 ML VIAL IV PRN (06:12)
[2022-05-19] MEDS: POTASSIUM CHLORIDE RIDER 10 MEQ/100 ML PREMIX IV PRN ×3 (06:12→14:28)
[2022-05-19 06:20] LABS: Arterial Base Excess iSTAT 3 MMOL/L (-2.5-2.5); Arterial Bicarbonate iSTAT 27.1 MMOL/L (20-26); Arterial O2 Saturation iSTAT 88 % (95-100); Arterial PCO2 iSTAT 38 MM HG (35-48); Arterial PO2 iSTAT 52 MM HG (80-95); Arterial Total CO2 iSTAT 28 MMO/L (23-27); Arterial pH iSTAT 7.466 (7.35-7.45)
[2022-05-19 07:55] LABS: Anisocytosis 1+; Band Neutrophils 7 % (0-10); Lymphocytes 1 % (20-55); Ovalocytes Few; Platelet Estimate Normal; Total Cells Counted 100
[2022-05-19] MEDS: INSULIN REGULAR 100 UNIT/ML SUBCUT SCH ×4 (09:23→21:07)
[2022-05-19] MEDS: PANTOPRAZOLE 40 MG TABLET PO SCH (09:24)
[2022-05-19] MEDS: FUROSEMIDE 40 MG TABLET PO SCH (09:24)
[2022-05-19] MEDS: BUDESONIDE/FORMOTEROL 160-4.5 INHALER 6 GM INH SCH (09:24)
[2022-05-19] MEDS: APIXABAN 5 MG TABLET PO SCH ×2 (09:24→21:07)
[2022-05-19] MEDS: METOPROLOL TARTRATE 25 MG TABLET PO SCH (09:24)
[2022-05-19] MEDS: FUROSEMIDE 20 MG/2 ML VIAL IV SCH (15:21)
[2022-05-19] MEDS: ESCITALOPRAM 10 MG TABLET PO SCH (21:08)
[2022-05-20] MEDS: LEVALBUTEROL 1.25 MG/3 ML NEB RESP TX SCH ×4 (02:05→18:53)
[2022-05-20] MEDS: methylPREDNISolone SOD SUC 40 MG/1 ML VIAL IV SCH ×3 (05:48→21:00)
[2022-05-20 06:30] LABS: Osmolality,Calculated 301.6 MOS/KG (273-304); Potassium 3.5 MMOL/L (3.5-5.1)
[2022-05-20] MEDS: INSULIN REGULAR 100 UNIT/ML SUBCUT SCH ×4 (06:33→20:29)
[2022-05-20] MEDS: FUROSEMIDE 20 MG/2 ML VIAL IV SCH ×2 (09:21→15:19)
[2022-05-20] MEDS: LORazepam 2 MG/1 ML VIAL IV PRN ×2 (09:21→14:22)
[2022-05-20] MEDS: POTASSIUM CHLORIDE 20 MEQ TABLET PO SCH ×2 (09:23→21:01)
[2022-05-20] MEDS: APIXABAN 5 MG TABLET PO SCH ×2 (09:23→21:01)
[2022-05-20] MEDS: METOPROLOL TARTRATE 25 MG TABLET PO SCH (09:24)
[2022-05-20] MEDS: BUDESONIDE/FORMOTEROL 160-4.5 INHALER 6 GM INH SCH (09:24)
[2022-05-20] MEDS: PANTOPRAZOLE 40 MG TABLET PO SCH (09:24)
[2022-05-20] MEDS: DILTIAZEM INJ 100 MG in SODIUM CHLORIDE 0.9% 100 ML IV SCH (10:15)
[2022-05-20] MEDS: ESCITALOPRAM 10 MG TABLET PO SCH (21:01)
[2022-05-20] MEDS: LEVOFLOXACIN INJ 750 MG/150 ML PREMIX IV SCH (21:17)
[2022-05-21] MEDS ORDERED: LEVALBUTEROL 1.25 MG/3 ML NEB RESP TX ONE (00:06)
[2022-05-21] MEDS: LEVALBUTEROL 1.25 MG/3 ML NEB RESP TX SCH ×4 (00:12→19:08)
[2022-05-21] MEDS: methylPREDNISolone SOD SUC 40 MG/1 ML VIAL IV SCH (04:57)
[2022-05-21 05:37] LABS: Basophils % 0.2 % (0.0-0.8); Hematocrit 32.5 VOL% (35.7-47.0); Hemoglobin 9.6 GM/DL (12.0-16.0); Lymphocytes # 0.5 10*3/uL (1.4-4.0); Lymphocytes % 2.6 % (21.3-54.2); Mean Corpuscular HGB Conc 29.5 GM/DL (32-36); Mean Corpuscular Volume 93.4 FL (87-102); Mean Platelet Volume 11.5 FL (9.6-12.0); Monocytes % 5.6 % (1.7-12.7); Neutrophils % 89.5 % (38.7-73.9); Platelet Count 153 T/CUMM (130-400); Red Blood Count 3.48 MC/CUMM (3.8-5.5); Red Cell Distribution Width 18.3 % (9.3-17.3); White Blood Count 18.2 T/CUMM (4-12)
[2022-05-21 06:04] LABS: Hypochromia Slight; Lymphocytes 3 % (20-55); Microcytosis Slight; Ovalocytes Slight; Platelet Estimate Adequate
[2022-05-21 06:07] LABS: Albumin 2.2 G/DL (3.4-5.0); Bilirubin,Total 1.3 MG/DL (0.20-1.00); Calcium 7.6 MG/DL (8.5-10.1); Osmolality,Calculated 314.9 MOS/KG (273-304); Potassium 3.1 MMOL/L (3.5-5.1); Total Protein 5.1 G/DL (6.4-8.2)
[2022-05-21] MEDS: DILTIAZEM INJ 100 MG in SODIUM CHLORIDE 0.9% 100 ML IV SCH (08:36)
[2022-05-21] MEDS: FUROSEMIDE 20 MG/2 ML VIAL IV SCH (08:37)
[2022-05-21] MEDS: APIXABAN 5 MG TABLET PO SCH (09:43)
[2022-05-21] MEDS: POTASSIUM CHLORIDE 20 MEQ TABLET PO SCH ×2 (09:43→20:32)
[2022-05-21] MEDS: PANTOPRAZOLE 40 MG TABLET PO SCH (09:43)
[2022-05-21] MEDS: METOPROLOL TARTRATE 25 MG TABLET PO SCH (09:47)
[2022-05-21] MEDS: INSULIN REGULAR 100 UNIT/ML SUBCUT SCH ×4 (11:32→20:33)
[2022-05-21] MEDS: BUDESONIDE/FORMOTEROL 160-4.5 INHALER 6 GM INH SCH (12:14)
[2022-05-21] MEDS ORDERED: SODIUM CHLORIDE 0.9% 1,000 ML IV SCH (14:30)
[2022-05-21] MEDS: DEXTROSE 5% 1,000 ML IV SCH (17:00)
[2022-05-21] MEDS: ACETAMINOPHEN 325 MG TABLET PO PRN (20:32)
[2022-05-21] MEDS: ESCITALOPRAM 10 MG TABLET PO SCH (20:32)
[2022-05-22] MEDS: LEVALBUTEROL 1.25 MG/3 ML NEB RESP TX SCH ×4 (00:09→19:30)
[2022-05-22] MEDS: DILTIAZEM INJ 100 MG in SODIUM CHLORIDE 0.9% 100 ML IV SCH ×3 (02:11→23:02)
[2022-05-22 05:18] LABS: Basophils % 0.2 % (0.0-0.8); Hematocrit 22.4 VOL% (35.7-47.0); Hemoglobin 6.7 GM/DL (12.0-16.0); Lymphocytes # 0.8 10*3/uL (1.4-4.0); Lymphocytes % 5.2 % (21.3-54.2); Mean Corpuscular HGB Conc 29.9 GM/DL (32-36); Mean Corpuscular Volume 94.9 FL (87-102); Mean Platelet Volume 11.9 FL (9.6-12.0); Monocytes # 1.2 10*3/uL (0.11-0.8); Monocytes % 7.4 % (1.7-12.7); NRBC # 0.11 10*3/uL; Neutrophils % 82.2 % (38.7-73.9); Platelet Count 142 T/CUMM (130-400); Red Blood Count 2.36 MC/CUMM (3.8-5.5); Red Cell Distribution Width 18.6 % (9.3-17.3); White Blood Count 15.9 T/CUMM (4-12)
[2022-05-22] MEDS ORDERED: SODIUM CHLORIDE 0.9% 1,000 ML IV PRN (05:31)
[2022-05-22 05:41] LABS: Lymphocytes 5 % (20-55); Platelet Estimate Adequate; Total Cells Counted 100
[2022-05-22 05:42] LABS: Hypochromia Slight; Microcytosis Slight
[2022-05-22 05:55] LABS: Calcium 7.6 MG/DL (8.5-10.1); Osmolality,Calculated 333.4 MOS/KG (273-304); Potassium 3.1 MMOL/L (3.5-5.1)
[2022-05-22] MEDS: METOPROLOL TARTRATE 25 MG TABLET PO SCH (09:24)
[2022-05-22] MEDS: INSULIN REGULAR 100 UNIT/ML SUBCUT SCH ×4 (09:32→23:13)
[2022-05-22] MEDS: BUDESONIDE/FORMOTEROL 160-4.5 INHALER 6 GM INH SCH (09:32)
[2022-05-22] MEDS: POTASSIUM CHLORIDE 20 MEQ TABLET PO SCH ×2 (09:33→21:21)
[2022-05-22] MEDS: PANTOPRAZOLE 40 MG VIAL IV SCH ×2 (09:36→21:22)
[2022-05-22] MEDS: POTASSIUM CHLORIDE RIDER 10 MEQ/100 ML PREMIX IV PRN ×4 (09:37→12:51)
[2022-05-22] MEDS: DEXTROSE 5% 1,000 ML IV SCH (11:52)
[2022-05-22] MEDS: PANTOPRAZOLE 40 MG TABLET PO SCH (12:44)
[2022-05-22] MEDS: ESCITALOPRAM 10 MG TABLET PO SCH (21:21)
[2022-05-23 00:38] LABS: Hematocrit 32.4 VOL% (35.7-47.0); Hemoglobin 10.2 GM/DL (12.0-16.0)
[2022-05-23] MEDS: LEVALBUTEROL 1.25 MG/3 ML NEB RESP TX SCH ×4 (00:50→19:00)
[2022-05-23] MEDS: DEXTROSE 5% 1,000 ML IV SCH ×3 (01:57→13:16)
[2022-05-23 05:20] LABS: Basophils # 0.1 10*3/uL (0.0-0.2); Basophils % 0.5 % (0.0-0.8); Eosinophils # 0.1 10*3/uL (0.0-0.87); Eosinophils % 0.3 % (0.00-10.9); Hematocrit 31.2 VOL% (35.7-47.0); Hemoglobin 9.7 GM/DL (12.0-16.0); Immature Granulocytes % 5.6 %; Immature Granulocytes Absolute 1.18 #; Lymphocytes # 1.9 10*3/uL (1.4-4.0); Lymphocytes % 9.1 % (21.3-54.2); Mean Corpuscular HGB Conc 31.1 GM/DL (32-36); Mean Corpuscular Volume 88.9 FL (87-102); Mean Platelet Volume 11.7 FL (9.6-12.0); Monocytes # 1.1 10*3/uL (0.11-0.8); Monocytes % 5.2 % (1.7-12.7); NRBC # 0.24 10*3/uL; Neutrophils % 79.3 % (38.7-73.9); Platelet Count 130 T/CUMM (130-400); Red Blood Count 3.51 MC/CUMM (3.8-5.5); Red Cell Distribution Width 17.6 % (9.3-17.3)
[2022-05-23 05:48] LABS: Calcium 7.8 MG/DL (8.5-10.1); Lymphocytes 12 % (20-55); Nucleated Red Blood Cells 1 /100 WBC (0-5); Osmolality,Calculated 317.9 MOS/KG (273-304); Platelet Estimate Adequate; Potassium 3.6 MMOL/L (3.5-5.1); Total Cells Counted 100
[2022-05-23 05:49] LABS: Hypochromia Slight; Microcytosis Slight
[2022-05-23] MEDS: INSULIN REGULAR 100 UNIT/ML SUBCUT SCH ×3 (09:04→15:59)
[2022-05-23] MEDS: POTASSIUM CHLORIDE RIDER 10 MEQ/100 ML PREMIX IV PRN ×2 (09:04→13:14)
[2022-05-23] MEDS: PANTOPRAZOLE 40 MG VIAL IV SCH ×2 (09:05→21:27)
[2022-05-23] MEDS: BUDESONIDE/FORMOTEROL 160-4.5 INHALER 6 GM INH SCH (09:06)
[2022-05-23] MEDS: POTASSIUM CHLORIDE 20 MEQ TABLET PO SCH ×2 (09:06→21:26)
[2022-05-23] MEDS: METOPROLOL TARTRATE 25 MG TABLET PO SCH ×2 (09:06→21:26)
[2022-05-23] MEDS ORDERED: DIGOXIN 0.5 MG/2 ML AMP IV ONE (09:58)
[2022-05-23] MEDS: ESCITALOPRAM 10 MG TABLET PO SCH (21:26)
[2022-05-23] MEDS: DILTIAZEM INJ 100 MG in SODIUM CHLORIDE 0.9% 100 ML IV SCH (21:27)
[2022-05-24] MEDS: LEVALBUTEROL 1.25 MG/3 ML NEB RESP TX SCH ×4 (00:20→19:39)
[2022-05-24] MEDS: INSULIN REGULAR 100 UNIT/ML SUBCUT SCH ×5 (00:26→21:22)
[2022-05-24] MEDS: DEXTROSE 5% 1,000 ML IV SCH ×2 (02:24→09:02)
[2022-05-24 05:18] LABS: Basophils # 0.1 10*3/uL (0.0-0.2); Basophils % 0.4 % (0.0-0.8); Eosinophils # 0.4 10*3/uL (0.0-0.87); Eosinophils % 2.1 % (0.00-10.9); Hematocrit 26.9 VOL% (35.7-47.0); Hemoglobin 8.7 GM/DL (12.0-16.0); Immature Granulocytes % 6.1 %; Immature Granulocytes Absolute 1.13 #; Lymphocytes # 1.6 10*3/uL (1.4-4.0); Lymphocytes % 8.6 % (21.3-54.2); Mean Corpuscular HGB Conc 32.3 GM/DL (32-36); Mean Corpuscular Volume 87.9 FL (87-102); Mean Platelet Volume 12.1 FL (9.6-12.0); Monocytes # 0.8 10*3/uL (0.11-0.8); Monocytes % 4.5 % (1.7-12.7); Neutrophils % 78.3 % (38.7-73.9); Platelet Count 100 T/CUMM (130-400); Red Blood Count 3.06 MC/CUMM (3.8-5.5); Red Cell Distribution Width 17.5 % (9.3-17.3); White Blood Count 18.6 T/CUMM (4-12)
[2022-05-24 05:26] LABS: Calcium 7.4 MG/DL (8.5-10.1); Osmolality,Calculated 291.1 MOS/KG (273-304); Potassium 3.8 MMOL/L (3.5-5.1)
[2022-05-24 05:58] LABS: Band Neutrophils 2 % (0-10); Eosinophils 2 % (0-10); Hypochromia Slight; Lymphocytes 14 % (20-55); Microcytosis 1+; Nucleated Red Blood Cells 4 /100 WBC (0-5); Total Cells Counted 100
[2022-05-24 05:59] LABS: Ovalocytes Slight; Platelet Estimate Decreased; Polychromasia Slight
[2022-05-24] MEDS: POTASSIUM CHLORIDE 20 MEQ TABLET PO SCH ×2 (08:57→21:22)
[2022-05-24] MEDS: METOPROLOL TARTRATE 25 MG TABLET PO SCH ×2 (08:57→21:22)
[2022-05-24] MEDS: PANTOPRAZOLE 40 MG VIAL IV SCH ×2 (08:58→21:22)
[2022-05-24] MEDS: BUDESONIDE/FORMOTEROL 160-4.5 INHALER 6 GM INH SCH (09:05)
[2022-05-24] MEDS: ESCITALOPRAM 10 MG TABLET PO SCH (21:22)
[2022-05-25] MEDS: LEVALBUTEROL 1.25 MG/3 ML NEB RESP TX SCH ×4 (00:35→19:04)
[2022-05-25 05:44] LABS: Basophils % 0.2 % (0.0-0.8); Eosinophils # 0.4 10*3/uL (0.0-0.87); Eosinophils % 2.3 % (0.00-10.9); Hematocrit 24.4 VOL% (35.7-47.0); Hemoglobin 7.8 GM/DL (12.0-16.0); Immature Granulocytes % 4.8 %; Immature Granulocytes Absolute 0.75 #; Lymphocytes # 1.1 10*3/uL (1.4-4.0); Lymphocytes % 7.2 % (21.3-54.2); Mean Corpuscular Volume 90.4 FL (87-102); Mean Platelet Volume 12.1 FL (9.6-12.0); NRBC # 0.07 10*3/uL; Neutrophils % 79.5 % (38.7-73.9); Platelet Count 100 T/CUMM (130-400); Red Cell Distribution Width 17.3 % (9.3-17.3); White Blood Count 15.8 T/CUMM (4-12)
[2022-05-25 06:01] LABS: Osmolality,Calculated 288.8 MOS/KG (273-304); Potassium 3.3 MMOL/L (3.5-5.1)
[2022-05-25 06:11] LABS: Lymphocytes 5 % (20-55); Platelet Estimate Decreased; Total Cells Counted 100
[2022-05-25 06:12] LABS: Hypochromia Slight
[2022-05-25 06:13] LABS: Microcytosis 1+
[2022-05-25] MEDS: PANTOPRAZOLE 40 MG VIAL IV SCH ×2 (09:55→20:57)
[2022-05-25] MEDS: POTASSIUM CHLORIDE 20 MEQ TABLET PO SCH ×2 (10:18→20:57)
[2022-05-25] MEDS: METOPROLOL TARTRATE 25 MG TABLET PO SCH ×2 (10:18→20:57)
[2022-05-25] MEDS: INSULIN REGULAR 100 UNIT/ML SUBCUT SCH ×4 (10:18→20:59)
[2022-05-25] MEDS: BUDESONIDE/FORMOTEROL 160-4.5 INHALER 6 GM INH SCH (10:18)
[2022-05-25] MEDS: DEXTROSE 5% 1,000 ML IV SCH ×2 (14:35→20:58)
[2022-05-25] MEDS: ESCITALOPRAM 10 MG TABLET PO SCH (20:57)
[2022-05-25] MEDS: ACETAMINOPHEN 325 MG TABLET PO PRN (20:57)
[2022-05-26] MEDS: LEVALBUTEROL 1.25 MG/3 ML NEB RESP TX SCH ×4 (00:16→19:15)
[2022-05-26 05:20] LABS: Basophils % 0.2 % (0.0-0.8); Eosinophils # 0.3 10*3/uL (0.0-0.87); Eosinophils % 2.6 % (0.00-10.9); Hemoglobin 7.5 GM/DL (12.0-16.0); Immature Granulocytes % 4.4 %; Immature Granulocytes Absolute 0.57 #; Lymphocytes % 7.8 % (21.3-54.2); Mean Corpuscular HGB Conc 31.3 GM/DL (32-36); Mean Corpuscular Volume 90.2 FL (87-102); Mean Platelet Volume 12.6 FL (9.6-12.0); Monocytes # 0.8 10*3/uL (0.11-0.8); Monocytes % 6.4 % (1.7-12.7); NRBC # 0.03 10*3/uL; Neutrophils % 78.6 % (38.7-73.9); Platelet Count 100 T/CUMM (130-400); Red Blood Count 2.66 MC/CUMM (3.8-5.5); White Blood Count 13.1 T/CUMM (4-12)
[2022-05-26 07:18] LABS: Eosinophils 6 % (0-10); Hypochromia Slight; Lymphocytes 10 % (20-55); Microcytosis 1+; Ovalocytes Slight; Polychromasia Slight; Total Cells Counted 100
[2022-05-26 07:19] LABS: Platelet Estimate Decreased
[2022-05-26] MEDS: PANTOPRAZOLE 40 MG VIAL IV SCH ×2 (08:50→21:43)
[2022-05-26] MEDS: POTASSIUM CHLORIDE 20 MEQ TABLET PO SCH ×2 (09:31→21:44)
[2022-05-26] MEDS: METOPROLOL TARTRATE 25 MG TABLET PO SCH ×2 (09:31→21:44)
[2022-05-26] MEDS: INSULIN REGULAR 100 UNIT/ML SUBCUT SCH ×4 (09:31→21:44)
[2022-05-26] MEDS: BUDESONIDE/FORMOTEROL 160-4.5 INHALER 6 GM INH SCH (09:32)
[2022-05-26] MEDS: ESCITALOPRAM 10 MG TABLET PO SCH (21:44)
[2022-05-26] MEDS: ACETAMINOPHEN 325 MG TABLET PO PRN (21:44)
[2022-05-27] MEDS: LEVALBUTEROL 1.25 MG/3 ML NEB RESP TX SCH ×4 (00:38→20:52)
[2022-05-27 05:07] LABS: Basophils % 0.2 % (0.0-0.8); Eosinophils # 0.3 10*3/uL (0.0-0.87); Eosinophils % 2.4 % (0.00-10.9); Hematocrit 25.7 VOL% (35.7-47.0); Hemoglobin 8.1 GM/DL (12.0-16.0); Immature Granulocytes Absolute 0.33 #; Lymphocytes # 1.1 10*3/uL (1.4-4.0); Lymphocytes % 9.4 % (21.3-54.2); Mean Corpuscular HGB Conc 31.5 GM/DL (32-36); Mean Corpuscular Volume 91.5 FL (87-102); Mean Platelet Volume 12.7 FL (9.6-12.0); Monocytes # 0.8 10*3/uL (0.11-0.8); Monocytes % 7.1 % (1.7-12.7); NRBC # 0.02 10*3/uL; Neutrophils % 77.9 % (38.7-73.9); Platelet Count 100 T/CUMM (130-400); Red Blood Count 2.81 MC/CUMM (3.8-5.5); Red Cell Distribution Width 18.6 % (9.3-17.3); White Blood Count 11.2 T/CUMM (4-12)
[2022-05-27] MEDS: INSULIN REGULAR 100 UNIT/ML SUBCUT SCH ×3 (07:55→18:31)
[2022-05-27] MEDS: PANTOPRAZOLE 40 MG VIAL IV SCH ×2 (08:13→21:49)
[2022-05-27] MEDS: POTASSIUM CHLORIDE 20 MEQ TABLET PO SCH ×2 (09:19→21:49)
[2022-05-27] MEDS: METOPROLOL TARTRATE 25 MG TABLET PO SCH ×2 (09:19→21:49)
[2022-05-27] MEDS: BUDESONIDE/FORMOTEROL 160-4.5 INHALER 6 GM INH SCH (09:20)
[2022-05-27] MEDS: DEXTROSE 5% 1,000 ML IV SCH (10:27)
[2022-05-27] MEDS: ESCITALOPRAM 10 MG TABLET PO SCH (21:49)
[2022-05-28] MEDS: DEXTROSE 5% 1,000 ML IV SCH (01:12)
[2022-05-28] MEDS: INSULIN REGULAR 100 UNIT/ML SUBCUT SCH ×3 (01:34→11:53)
[2022-05-28] MEDS: LEVALBUTEROL 1.25 MG/3 ML NEB RESP TX SCH ×2 (04:29→07:10)
[2022-05-28] MEDS ORDERED: DAPAGLIFLOZIN 10 MG TABLET PO SCH (09:00)
[2022-05-28] MEDS: PANTOPRAZOLE 40 MG VIAL IV SCH (11:02)
[2022-05-28] MEDS: METOPROLOL TARTRATE 25 MG TABLET PO SCH (11:02)
[2022-05-28] MEDS: BUDESONIDE/FORMOTEROL 160-4.5 INHALER 6 GM INH SCH (11:02)
[2022-05-28] MEDS: POTASSIUM CHLORIDE 20 MEQ TABLET PO SCH (11:02)
[2022-05-28 11:52] VITALS: BP 112/76
== END 2022-05-28 14:39 | DRG 291 ==
LOC: EDBD → EDUNIT# → N.ED 19:48 → SUATTDRO 21:08 → N.EDINP 21:08 → N.TELEN 05-15 17:46
PROVIDERS: ADMIT Internal Medicine; ATTEND Internal Medicine